=== PATIENT | female | born 1985 | race Caucasian/White ===

== ENCOUNTER → 2017-10-27 09:31 | Outpatient (CLI) | payer OTHER, SELFPAY ==
--- NOTE | 2017-10-27 09:31 | DT_ITS ---
This patient was seen during an EMR downtime October 20, 2017 - October 27, 2017. This patient may have a combination of paper and electronic documentation or all paper documentation. All documentation is viewable within the e-chart portion of [employer] for each patient visit.
[2017-10-27 13:04] LABS: Free T3 2.2 pg/mL (2.18-3.98); T4 Free Direct 1.12 ng/dL (0.76-1.46); Thyroid Stim Hormone (TSH) 7.73 uIU/mL (0.358-3.74)
== END ==
PROVIDERS: Family Provider Family Medicine; PCP Family Medicine; Visit Provider Family Medicine
DX: E03.9 Hypothyroidism, unspecified (principal)
CPT/HCPCS: 36415; 84439; 84443; 84481

== ENCOUNTER → 2018-02-20 09:15 | Outpatient (CLI) | payer OTHER, SELFPAY ==
[2018-02-20 11:36] LABS: Free T3 4.1 pg/mL (2.18-3.98); T4 Free Direct 0.59 ng/dL (0.76-1.46)
== END ==
PROVIDERS: Family Provider Family Medicine; PCP Family Medicine; Visit Provider Family Medicine
DX: E03.9 Hypothyroidism, unspecified (principal)
CPT/HCPCS: 36415; 84439; 84443; 84481

== ENCOUNTER → 2018-05-29 13:41 | Outpatient (CLI) | payer OTHER, SELFPAY ==
[2018-05-29 18:20] LABS: Free T3 2.5 pg/mL (2.18-3.98); T4 Free Direct 0.57 ng/dL (0.76-1.46)
== END ==
PROVIDERS: Family Provider Family Medicine; PCP Family Medicine; Visit Provider Family Medicine
DX: E03.9 Hypothyroidism, unspecified (principal)
CPT/HCPCS: 36415; 84439; 84443; 84481

== ENCOUNTER → 2018-07-24 09:19 | Outpatient (CLI) | payer OTHER, SELFPAY | PROVIDERS: Family Provider Family Medicine; PCP Family Medicine; Referring Provider Family Medicine; Visit Provider Family Medicine | DX: E03.9 Hypothyroidism, unspecified (principal) | CPT/HCPCS: 36415 ==

== ENCOUNTER → 2018-10-02 10:22 | Outpatient (CLI) | payer OTHER, SELFPAY | PROVIDERS: Family Provider Family Medicine; PCP Family Medicine; Referring Provider Family Medicine; Visit Provider Family Medicine | DX: E03.9 Hypothyroidism, unspecified (principal) | CPT/HCPCS: 36415 ==

== ENCOUNTER → 2019-02-20 08:31 | Outpatient (CLI) | payer OTHER, SELFPAY ==
--- NOTE | 2019-02-20 08:00 | US_ITS ---
HISTORY:F/U CYST ON LEFT KIDNEYHX OF 20CM CYST ON PANC TAIL AND SPLENECTOMY 13 YEARS AGO Ultrasound of the kidneys complete Comparison prior ultrasound of the abdomen obtained on April 18, 2017 Findings: The right kidney measures 9.8 x 4.8 x 0.3 cm. The cortex is preserved measuring 1.1 cm. There is mild right-sided hydronephrosis. Size is similar to the prior study The left kidney measures 10.7 x 6.2 x 5.4 cm also similar to prior study. The cortex is preserved measuring 1.6 cm. There is a cyst measuring approximately 3 x 1.5 x 1.2 cm. This is slightly increased in size compared to prior study. There is mild left-sided hydronephrosis. Vascular flow is seen bilaterally Bilateral ureteral jets are seen within the bladder. Bladder volume is 108.9 mL. Post residua of 19.1 mL. The bladder wall is not thickened US/Kidney and Bladder IMPRESSION: Mild hydronephrosis bilaterally Left renal cyst Bilateral ureteral jets within the bladder at 0136 Reported and signed by: Mar Zhu DO Electronically Signed: Mar Zhu DO at 1:35 EDT Tel , Service support ,
== END ==
PROVIDERS: Family Provider Family Medicine; PCP Family Medicine; Referring Provider Family Medicine; Visit Provider Family Medicine
DX: N28.1 Cyst of kidney, acquired (principal)
CPT/HCPCS: 76770

== ENCOUNTER → 2019-02-25 16:27 | Outpatient (CLI) | payer OTHER, SELFPAY | PROVIDERS: Family Provider Family Medicine; PCP Family Medicine; Referring Provider Family Medicine; Visit Provider Family Medicine | DX: N28.1 Cyst of kidney, acquired (principal); E03.9 Hypothyroidism, unspecified; D64.9 Anemia, unspecified; R53.83 Other fatigue | CPT/HCPCS: 36415 ==

== ENCOUNTER → 2019-05-14 14:06 | Outpatient (CLI) | payer OTHER, SELFPAY | PROVIDERS: Family Provider Family Medicine; PCP Family Medicine; Visit Provider Family Medicine | DX: E03.9 Hypothyroidism, unspecified (principal) ==

== ENCOUNTER → 2019-07-30 09:19 | Outpatient (CLI) | payer OTHER, SELFPAY | PROVIDERS: PCP Family Medicine; Referring Provider Family Medicine; Visit Provider Family Medicine | DX: E03.9 Hypothyroidism, unspecified (principal); D64.9 Anemia, unspecified; E55.9 Vitamin D deficiency, unspecified | CPT/HCPCS: 36415 ==

== ENCOUNTER → 2020-01-25 09:29 | Outpatient (CLI) | payer OTHER, SELFPAY | PROVIDERS: PCP Family Medicine; Referring Provider Family Medicine; Visit Provider Family Medicine | DX: E03.9 Hypothyroidism, unspecified (principal); E55.9 Vitamin D deficiency, unspecified | CPT/HCPCS: 36415 ==

== ENCOUNTER → 2020-08-30 12:02 | Outpatient (CLI) | payer OTHER, SELFPAY | PROVIDERS: PCP Family Medicine; Referring Provider Family Medicine; Visit Provider Family Medicine | DX: D64.9 Anemia, unspecified (principal); N28.1 Cyst of kidney, acquired; E55.9 Vitamin D deficiency, unspecified; E03.9 Hypothyroidism, unspecified | CPT/HCPCS: 36415 ==

== ENCOUNTER → 2021-01-01 09:57 | Outpatient (CLI) | payer OTHER, SELFPAY | PROVIDERS: PCP Family Medicine; Referring Provider Family Medicine; Visit Provider Family Medicine | DX: E03.9 Hypothyroidism, unspecified (principal) | CPT/HCPCS: 36415 ==

== ENCOUNTER 2021-08-10 16:08 | Outpatient (CLI) | payer OTHER, SELFPAY | END 2021-08-10 23:59 | disposition home or self-care (01) | LOC: LABSPEC 16:09 | PROVIDERS: PCP Family Medicine; Referring Provider Family Medicine; Visit Provider Family Medicine | DX: J02.9 Acute pharyngitis, unspecified (principal) ==

== ENCOUNTER → 2021-11-23 | Outpatient (CLI) | payer OTHER, SELFPAY ==
--- NOTE | 2021-11-23 07:49 | US_ITS ---
STUDY: ABDOMINAL ULTRASOUND REASON FOR EXAM: Female, 36 years old. 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 THE CYST WAS ON THE PANCREAS AND EXTENDED INTO THE SPLEEN AREA. -- HX OF CURRENT LT KIDNEY CYST TECHNIQUE: Transabdominal ultrasound was performed with real-time and static venegas scale imaging. TECHNICAL QUALITY: Adequate. COMPARISON: Comparison is made with prior study dated 04/18/2017. FINDINGS: Liver: The liver measures 12.5 cm. There is normal echogenicity of the liver. The bile ducts are within normal limits. There is hepatic color flow. The direction of portal flow is hepatopetal. There is no demonstrated mass lesion. Portal vein measurement: Gallbladder: Normal distended gallbladder. The gallbladder wall measures 2.5 mm. There is a negative sonographic Gamez''s sign. There is no pericholecystic fluid. There are no gallstones. Common Bile Duct (C.B.D.): The common bile duct measures 3 mm. Pancreas: Normal size of the head, body and tail of the pancreas. There is normal echogenicity of the pancreas. There is no demonstrated pancreatic mass or cyst. Spleen: The patient is status post splenectomy. Right Kidney: Normal size of the right kidney. The right kidney measures 10.2 cm x 5.4 cm x 3.5 cm. Normal renal cortex. The right cortex measures 1.4 cm. There is no demonstrated renal mass or cyst. There is no right hydronephrosis. Left Kidney: Normal size of the left kidney. The left kidney measures 10.9 cm x 5.4 cm x 5.3 cm. Normal renal cortex. The left cortex measures 1.6 cm. There is a 3.3 cm x 2 cm x 1.8 cm left renal cyst. There is no left hydronephrosis. Aorta: Unremarkable I.V.C.: The IVC is patent. There is no ascites. US/Abdomen Complete IMPRESSION: Status post splenectomy. Left renal cyst. Electronically Signed: Jadon Burk MD at 9:53 EDT ,
== END | disposition home or self-care (01) ==
PROVIDERS: PCP Family Medicine; Referring Provider Family Medicine; Visit Provider Family Medicine
DX: E16.9 Disorder of pancreatic internal secretion, unspecified (principal)
CPT/HCPCS: 76700

== ENCOUNTER → 2022-03-07 | Outpatient (CLI) | payer OTHER, SELFPAY | END | disposition home or self-care (01) | LOC: MFPLAB 08:16 | PROVIDERS: PCP Family Medicine; Referring Provider Family Medicine; Visit Provider Family Medicine | DX: Z00.00 Encounter for general adult medical examination without abnormal findings (principal); N28.1 Cyst of kidney, acquired; E03.9 Hypothyroidism, unspecified; E55.9 Vitamin D deficiency, unspecified; D64.9 Anemia, unspecified; Z13.220 Encounter for screening for lipoid disorders | CPT/HCPCS: 36415 ==

== ENCOUNTER 2022-12-20 08:07 | Outpatient (CLI) | payer OTHER, SELFPAY ==
[2022-12-20 09:53] LABS: Absolute Lymphocyte Count 1.69 X10^3/uL (0.83-4.51); Absolute Neutrophil Count 2.9 X10^3/uL (2.0-7.7); Basophil# 0.07 X10^3/uL; Basophil% 1.2 % (0-1); Eosinophil# 0.23 X10^3/uL; Hematocrit 35.9 % (37-47); Hemoglobin 11.7 g/dL (12.0-15.0); Lymphocyte # 1.69 X10^3/ul (0.83-4.51); Lymphocyte % 29.5 % (19-41); Mean Corp Hgb Conc 32.6 g/dL (32-36); Mean Corpuscular Hgb 30.4 pg (27.0-32.0); Mean Corpuscular Volume 93.2 fL (81-99); Mean Platelet Vol. 10.3 fl (6.2-12.0); Monocyte# 0.79 X10^3/uL; Monocyte% 13.8 % (0-10); NRBC Flagged by Analyzer 0 % (0-5); Neutrophil # 2.92 X10^3/uL (2.7-7.7); Neutrophil % 51.2 % (47-70); Platelet Count 355 K/mm3 (150-450); RBC Distribution Width CV 14.7 % (11.6-14.6); RBC Distribution Width SD 50.6 fl (35.1-43.9); Red Blood Count 3.85 M/mm3 (4.2-5.4); White Blood Count 5.7 K/mm3 (4.4-11.0)
[2022-12-20 10:12] LABS: Vitamin D,25 Hydroxy 78.7 ng/mL
[2022-12-20 10:16] LABS: Anion Gap 4 (5-15); BUN 14 mg/dL (7-18); Calcium,Total 8.7 mg/dL (8.5-10.1); Chloride 107 mmol/L (98-107); Cholesterol 121 mg/dL (200); Creatinine, Serum 0.67 mg/dL (0.55-1.02); EST Glomerular Filtration Rate 106 mL/min (>60); Est Glom Filt Rate - Afr Amer 128 mL/min (>60); Free T3 1.9 pg/mL (2.18-3.98); Glucose 87 mg/dL (74-106); High Density Lipoprotein 67 mg/dL; Iron 84 ug/dL (50-170); Potassium 4.1 mmol/L (3.5-5.1); Sodium Level 137 mmol/L (136-145); T4 Free Direct 1.05 ng/dL (0.76-1.46); Thyroid Stim Hormone (TSH) 1.56 uIU/mL (0.358-3.74); Triglycerides 38 mg/dL; Very Low Density Lipoprotein 8 mg/dL (5-40)
== END 2022-12-20 23:59 | disposition home or self-care (01) ==
LOC: MFPLAB 08:14
PROVIDERS: PCP Family Medicine; Visit Provider Family Medicine
DX: Z13.220 Encounter for screening for lipoid disorders (principal); D64.9 Anemia, unspecified; E03.9 Hypothyroidism, unspecified; E55.9 Vitamin D deficiency, unspecified
CPT/HCPCS: 36415; 80048; 80061; 82306; 83540; 84439; 84443; 84481; 85025

== ENCOUNTER → 2023-08-05 | Outpatient (CLI) | payer OTHER, SELFPAY ==
[2023-08-05 12:36] LABS: Vitamin D,25 Hydroxy 82.2 ng/mL
[2023-08-05 13:20] LABS: Anion Gap 7 (5-15); BUN 12 mg/dL (7-18); BUN/Creat Ratio 15.8 RATIO (10-20); Calcium,Total 9.2 mg/dL (8.5-10.1); Chloride 104 mmol/L (98-107); Cholesterol 154 mg/dL (200); Creatinine, Serum 0.76 mg/dL (0.55-1.02); EST Glomerular Filtration Rate 91 mL/min (>60); Est Glom Filt Rate - Afr Amer 111 mL/min (>60); Free T3 2.4 pg/mL (2.18-3.98); Glucose 84 mg/dL (74-106); High Density Lipoprotein 78 mg/dL; Potassium 3.9 mmol/L (3.5-5.1); Sodium Level 138 mmol/L (136-145); T4 Free Direct 1.29 ng/dL (0.76-1.46); Thyroid Stim Hormone (TSH) 1.62 uIU/mL (0.358-3.74); Triglycerides 37 mg/dL; Very Low Density Lipoprotein 7 mg/dL (5-40)
== END | disposition home or self-care (01) ==
LOC: MFPLAB 10:34
PROVIDERS: PCP Family Medicine; Visit Provider Family Medicine
DX: Z13.1 Encounter for screening for diabetes mellitus (principal); E55.9 Vitamin D deficiency, unspecified; E03.9 Hypothyroidism, unspecified; Z13.220 Encounter for screening for lipoid disorders
CPT/HCPCS: 36415; 80048; 80061; 82306; 84439; 84443; 84481

== ENCOUNTER → 2024-04-29 | Outpatient (CLI) | payer OTHER, SELFPAY ==
[2024-04-29 15:23] LABS: Hematocrit 37.9 % (37-47); Hemoglobin 12.4 g/dL (12.0-15.0); Mean Corp Hgb Conc 32.7 g/dL (32-36); Mean Corpuscular Hgb 29.9 pg (27.0-32.0); Mean Corpuscular Volume 91.3 fL (81-99); Mean Platelet Vol. 10.3 fl (6.2-12.0); Platelet Count 373 K/mm3 (150-450); RBC Distribution Width CV 14.6 % (11.6-14.6); Red Blood Count 4.15 M/mm3 (4.2-5.4); White Blood Count 8.1 K/mm3 (4.4-11.0)
[2024-04-29 16:19] LABS: Anion Gap 7 (5-15); BUN 14 mg/dL (7-18); BUN/Creat Ratio 20.4 RATIO (10-20); Calcium,Total 9.5 mg/dL (8.5-10.1); Chloride 103 mmol/L (98-107); Creatinine, Serum 0.69 mg/dL (0.55-1.02); EST Glomerular Filtration Rate 102 mL/min (>60); Est Glom Filt Rate - Afr Amer 123 mL/min (>60); Estradiol 80.8 pg/mL; Free T3 1.9 pg/mL (2.18-3.98); Glucose 102 mg/dL (74-106); Luteinizing Hormone 2.8 mIU/mL; Potassium 3.7 mmol/L (3.5-5.1); Sodium Level 135 mmol/L (136-145); T4 Free Direct 1.14 ng/dL (0.76-1.46)
== END | disposition home or self-care (01) ==
LOC: MFPLAB 12:26
PROVIDERS: PCP Family Medicine; Referring Provider Family Medicine; Visit Provider Family Medicine
DX: E03.9 Hypothyroidism, unspecified (principal); N92.6 Irregular menstruation, unspecified
CPT/HCPCS: 80048; 82670; 83001; 83002; 84403; 84439; 84443; 84481; 85027

== ENCOUNTER → 2024-05-18 | Outpatient (CLI) | payer OTHER, SELFPAY ==
--- NOTE | 2024-05-18 08:00 | US_ITS ---
STUDY: ABDOMINAL ULTRASOUND REASON FOR EXAM: Female, 38 years old. LT KIDNEY CYST TECHNIQUE: Transabdominal ultrasound was performed with real-time and static venegas scale imaging. TECHNICAL QUALITY: Adequate. COMPARISON: 11/23/2021 FINDINGS: Liver: The liver measures 16.3 cm. There is normal echogenicity of the liver. The bile ducts are within normal limits. There is hepatic color flow. The direction of portal flow is hepatopetal. There is no demonstrated mass lesion. Portal vein measurement: Gallbladder: Normal distended gallbladder. The gallbladder wall measures 2 mm. There is a negative sonographic Gamez''s sign. There is no pericholecystic fluid. There is biliary sludge dependent within the gallbladder. Common Bile Duct (C.B.D.): The common bile duct measures 4 mm. Pancreas: Normal size of the head, body and tail of the pancreas. There is normal echogenicity of the pancreas. There is no demonstrated pancreatic mass or cyst. Spleen: Status post splenectomy.. Right Kidney: Normal size of the right kidney. The right kidney measures 9.0 cm. Normal renal cortex. The right cortex measures 1.0 cm. There is no demonstrated renal mass or cyst. There is no right hydronephrosis. Left Kidney: Normal size of the left kidney. The left kidney measures 10.2 cm. Normal renal cortex. The left cortex measures 1.0 cm. 3 cm septated cyst in the midsection of left kidney. There is no left hydronephrosis. Aorta: No abdominal aortic aneurysm. I.V.C.: The IVC is patent. There is no ascites. US/Abdomen Complete IMPRESSION: Gallbladder sludge. Electronically Signed: Van Petty MD at 14:10 EST ,
== END | disposition home or self-care (01) ==
PROVIDERS: PCP Family Medicine; Referring Provider Family Medicine; Visit Provider Family Medicine
DX: Z90.81 Acquired absence of spleen (principal)
CPT/HCPCS: 76700

== ENCOUNTER → 2024-11-09 | Outpatient (CLI) | payer OTHER, SELFPAY ==
[2024-11-09 16:02] LABS: Erythrocyte Sedimentation Rate 18 mm/hr (0-30)
[2024-11-09 17:53] LABS: CPK Total, Creatine Kinase 81 U/L (24-195)
[2024-11-09 18:00] LABS: CRP < 3.00 mg/L (0.0-3.0)
[2024-11-11 16:10] LABS: PROEL- A/G Ratio 0.8 (0.7-1.7); PROEL- Albumin 3.4 g/dL (2.9-4.4); PROEL- Alpha-1 Globulin 0.3 g/dL (0.0-0.4); PROEL- Alpha-2 Globulin 0.8 g/dL (0.4-1.0); PROEL- Beta Globulin 1.2 g/dL (0.7-1.3); PROEL- Globulin, Total 4.3 g/dL (2.2-3.9); PROEL- TOTAL PROTEIN 7.7 g/dL (6.0-8.5); PROEL-M-Spike Not Observed g/dL (Not Observed)
[2024-11-11 17:07] LABS: ANTINUCLEAR ANTIBODIES DIRECT Negative (Negative); RNP Ab <0.2 AI (0.0-0.9); Smith Ab <0.2 AI (0.0-0.9)
== END | disposition home or self-care (01) ==
LOC: MFPLAB 14:17
PROVIDERS: PCP Family Medicine; Referring Provider Family Medicine; Visit Provider Family Medicine
DX: R21 Rash and other nonspecific skin eruption (principal)
CPT/HCPCS: 36415; 82550; 84165; 85652; 86038; 86140; 86235